=== PATIENT | male | born 1955 | race Caucasian/White ===

== ENCOUNTER 2025-01-27 10:33 | Day surgery (SDC) | payer OTHER ==
[2025-01-06 14:46] VITALS: BP 160/103
[~2025-01-27 10:33] MED LIST: Amlodipine Bes2.5 MG PO; HYDROCHLOROTHIA25 MG PO; JARDIANCE10 MG PO; LOSA50 PO
[2025-01-28] MEDS ORDERED: NEBI5 PO (12:42)
[2025-01-28] MEDS ORDERED: POTCHL20ER PO (12:43)
== END 2025-01-27 23:00 | disposition home or self-care (01) ==
LOC: ORSCMMR 10:33 → ORD 11:30 → ORSCMMR 23:00
DX: M17.11 Unilateral primary osteoarthritis, right knee (principal); Z53.9 Procedure and treatment not carried out, unspecified reason

== ENCOUNTER 2025-01-27 10:43 | Observation (INO) | payer OTHER ==
[~2025-01-27] VITALS: Ht 188 cm; Wt 108.9 kg
[2025-01-27] MEDS ORDERED: Ondansetron HCl 2 MG / ML 2ML Vial IV ONE (11:15)
[2025-01-27] MEDS ORDERED: NS 1,000 ML IV SCH ×2 (11:15→15:00)
[2025-01-27 11:29] LABS: BASOPHILS ABSOLUTE AUTO 0.06 K/mm3 (0.00-0.23); BASOPHILS PERCENT AUTO 1 % (0-2); EOSINOPHILS ABSOLUTE AUTO 0.05 K/mm3 (0.00-0.68); EOSINOPHILS PERCENT AUTO 1 % (0-6); Hematocrit 53.0 % (37.0-53.0); Hemoglobin 18.1 g/dL (13.5-17.5); IMMATURE GRAN ABSOLUTE AUTO 0.05 K/mm3 (0.00-0.10); IMMATURE GRAN PERCENT AUTO 1 % (0-1); LYMPHOCYTES ABSOLUTE AUTO 1.32 K/mm3 (0.84-5.20); LYMPHOCYTES PERCENT AUTO 13 % (21-46); MONOCYTES ABSOLUTE AUTO 1.41 K/mm3 (0.16-1.47); MONOCYTES PERCENT AUTO 14 % (4-13); Mean Corpuscular HGB Conc 34.2 g/dL (31.5-36.5); Mean Corpuscular Volume 85 fL (80-100); NEUTROPHILS ABSOLUTE AUTO 7.12 K/mm3 (1.96-9.15); NEUTROPHILS PERCENT AUTO 71 % (41-73); NRBC ABSOLUTE 0.00 K/mm3 (0.00-0.02); NRBC Auto 0.0 /100 WBC (0.0-0.2); Platelet Count 256 K/mm3 (150-400); RDW Coefficient Variation 13.5 % (11.7-14.2); RDW Standard Deviation 41.9 fL (35.1-46.3)
[2025-01-27] MEDS ORDERED: Mag Sulfate 1 GM/D5% 100ML 100 ML IV ONE (12:00)
[2025-01-27 12:14] LABS: Influenza A, PCR NEGATIVE (NEGATIVE); Influenza B, PCR NEGATIVE (NEGATIVE); Resp Syncytial Virus, PCR NEGATIVE (NEGATIVE); SARS-Cov-2 (COVID-19) PCR, MMC NEGATIVE (NEGATIVE)
[2025-01-27 12:23] LABS: Alanine Aminotransfer (ALT/SGP 37.0 U/L (12-78); Albumin, Blood 3.4 g/dL (3.4-5.0); Albumin/Globulin Ratio 0.8 (0.8-1.8); Anion Gap 15.0 mmol/L (3-11); Aspartate Aminotrans (AST/SGOT 31.0 U/L (12-37); Bilirubin, Total 1.7 mg/dL (0.1-1.0); Blood Urea Nitrogen 29.0 mg/dL (8-24); CO2, Blood 21.0 mmol/L (21-32); Calcium, Blood 8.8 mg/dL (8.5-10.1); Chloride, Blood 101.0 mmol/L (98-108); Creatinine, Blood 1.58 mg/dL (0.60-1.20); Globulin, Blood 4.1 g/dL (2.2-4.0); Glucose, Blood 203.0 mg/dL (70-99); Potassium, Blood 2.7 mmol/L (3.5-5.5); Sodium, Blood 134.0 mmol/L (136-145); Total Protein, Blood 7.5 g/dL (6.4-8.2)
[2025-01-27 12:35] LABS: pH Blood Venous 7.37 (7.34-7.37)
[2025-01-27] MEDS ORDERED: Ondansetron HCl 2 MG / ML 2ML Vial IV PRN (15:00)
[2025-01-27 17:29] LABS: Campylobacter Sp Detected (NOT DETECT)
[2025-01-27 17:30] LABS: E. Coli O157 Not Detected (NOT DETECT); Enteroaggregative E. coli-EAEC Not Detected (NOT DETECT); Enteropathogenic E. coli-EPEC Detected (NOT DETECT); Enterotoxigenic E. coli-ETEC Not Detected (NOT DETECT); Salmonella Sp Not Detected (NOT DETECT); Shiga Toxin-prod E. coli-STEC Not Detected (NOT DETECT); Shigella/Enteroin E. coli-EIEC Not Detected (NOT DETECT); Vibrio Sp Not Detected (NOT DETECT)
[2025-01-27 17:37] VITALS: BP 138/82
[2025-01-27 17:54] LABS: Anion Gap 6.0 mmol/L (3-11); Blood Urea Nitrogen 30.0 mg/dL (8-24); CO2, Blood 27.0 mmol/L (21-32); Calcium, Blood 8.5 mg/dL (8.5-10.1); Chloride, Blood 103.0 mmol/L (98-108); Creatinine, Blood 1.52 mg/dL (0.60-1.20); Glucose, Blood 151.0 mg/dL (70-99); Potassium, Blood 4.2 mmol/L (3.5-5.5); Sodium, Blood 132.0 mmol/L (136-145)
[2025-01-27 20:08] VITALS: BP 148/83
--- NOTE | 2025-01-27 20:24 | NUR ---
NEW TP-ORDER RECEIVED FROM THE ON-CALL HOSPITALIST: TYLENOL PO 500MG Q6 PRN. ENTERED TO [employer], SEE EMAR.
[2025-01-28 00:22] VITALS: BP 139/82
--- NOTE | 2025-01-28 02:47 | NUR ---
SHIFT SUMMARY CHARGE NURSE BENITA COMPLETED THE ADMISSION ASSESSMENT AT . PT IS A/O X4, INDEPENDENT W/I THE HOSPITAL ROOM. LR INFUSING ORDERED. TEMP. 99.1, NEW ORDER FOR TYLENOL PRN RECEIVED FROM THE ON-CALL HOSPITALIST. TELE: SR @96, DENIES CP/PRESSURE. PT REQUESTED IMMODIUM, C/O DIARRHEA> 5 DAYS. A PHONE CALL WAS PLACED AND PRN IMMODIUM WAS REQUESTED- NO ORDER RECEIVED OF YET, D/T PENDING STOOL LABS NEEDING TO BE REVIEWED. PT AGREEABLE TO THE PLAN. BED AT THE LOWEST POSITION, CALL LIGHT W/I REACH. PT IS ABLE TO MAKE HIS NEEDS KNOWN AND IS COOPERATIVE WITH CARE.
[2025-01-28 03:22] VITALS: BP 154/89
[2025-01-28 05:32] LABS: BASOPHILS ABSOLUTE AUTO 0.09 K/mm3 (0.00-0.23); BASOPHILS PERCENT AUTO 1 % (0-2); EOSINOPHILS ABSOLUTE AUTO 0.11 K/mm3 (0.00-0.68); EOSINOPHILS PERCENT AUTO 1 % (0-6); Hematocrit 49.3 % (37.0-53.0); Hemoglobin 16.1 g/dL (13.5-17.5); IMMATURE GRAN ABSOLUTE AUTO 0.04 K/mm3 (0.00-0.10); IMMATURE GRAN PERCENT AUTO 0 % (0-1); LYMPHOCYTES ABSOLUTE AUTO 1.34 K/mm3 (0.84-5.20); LYMPHOCYTES PERCENT AUTO 14 % (21-46); MONOCYTES ABSOLUTE AUTO 1.49 K/mm3 (0.16-1.47); MONOCYTES PERCENT AUTO 16 % (4-13); Mean Corpuscular HGB Conc 32.7 g/dL (31.5-36.5); Mean Corpuscular Volume 87 fL (80-100); NEUTROPHILS ABSOLUTE AUTO 6.54 K/mm3 (1.96-9.15); NEUTROPHILS PERCENT AUTO 68 % (41-73); NRBC ABSOLUTE 0.00 K/mm3 (0.00-0.02); NRBC Auto 0.0 /100 WBC (0.0-0.2); Platelet Count 235 K/mm3 (150-400); RDW Coefficient Variation 14.0 % (11.7-14.2); RDW Standard Deviation 44.6 fL (35.1-46.3)
[2025-01-28 05:56] LABS: Alanine Aminotransfer (ALT/SGP 28.0 U/L (12-78); Albumin, Blood 3.0 g/dL (3.4-5.0); Albumin/Globulin Ratio 0.8 (0.8-1.8); Anion Gap 10.0 mmol/L (3-11); Aspartate Aminotrans (AST/SGOT 19.0 U/L (12-37); Bilirubin, Total 1.2 mg/dL (0.1-1.0); Blood Urea Nitrogen 27.0 mg/dL (8-24); CO2, Blood 27.0 mmol/L (21-32); Calcium, Blood 8.2 mg/dL (8.5-10.1); Chloride, Blood 101.0 mmol/L (98-108); Creatinine, Blood 1.49 mg/dL (0.60-1.20); Globulin, Blood 3.7 g/dL (2.2-4.0); Glucose, Blood 139.0 mg/dL (70-99); Potassium, Blood 3.1 mmol/L (3.5-5.5); Sodium, Blood 135.0 mmol/L (136-145); Total Protein, Blood 6.7 g/dL (6.4-8.2)
[2025-01-28] MEDS ORDERED: Enoxaparin 40 MG/0.4 ML SYR SC SCH (09:00)
[2025-01-28 09:39] VITALS: BP 154/88
[2025-01-28] MEDS ORDERED: NEBI5 PO (12:42)
[2025-01-28] MEDS ORDERED: POTCHL20ER PO (12:43)
--- NOTE | 2025-01-28 13:43 | NUR ---
DISCHARGE PT DISCHARGED AND REFUSED WHEELCHAIR RIDE OUT OF FACILITY. PT EDUCATED ON NEW MEDS AND FOLLOWUP INSTRUCTIONS NEEDED. HARD SCRIPT FOR BLOOD WORK SENT WITH THE PATIENT. PT DENIED FURTHER NEED FOR INSTRUCTION PRIOR TO DC. PT SHOWERED TODAY. IV REMOVED & INTACT. NO ACUTE CHANGES PRIOR TO DC.
[2025-02-17] MEDS ORDERED: HYDCHL25 PO (14:28)
[2025-02-17] MEDS ORDERED: LOSA50 PO (14:30)
[2025-02-17] MEDS ORDERED: MUPIROCIN111 TOP (14:32)
[2025-02-17] MEDS ORDERED: OXYC5 PO (14:32)
[2025-02-17] MEDS ORDERED: SULTRIDS PO (14:33)
[2025-02-18] MEDS ORDERED: POTA10T PO (09:32)
== END 2025-01-28 13:19 | disposition home or self-care (01) ==
LOC: ER 10:43 → ERHOLD 10:44 → MEDS 17:20
PROVIDERS: Emergency Medicine; ADMIT Internal Medicine
DX: E87.6 Hypokalemia (principal); R55 Syncope and collapse; N17.9 Acute kidney failure, unspecified; K52.9 Noninfective gastroenteritis and colitis, unspecified; E86.0 Dehydration; I10 Essential (primary) hypertension; M17.9 Osteoarthritis of knee, unspecified; K21.9 Gastro-esophageal reflux disease without esophagitis; Z79.84 Long term (current) use of oral hypoglycemic drugs; Z79.899 Other long term (current) drug therapy; Z88.6 Allergy status to analgesic agent; Z88.8 Allergy status to other drugs, medicaments and biological substances
CPT/HCPCS: 36415; 71045; 80048; 80053; 82803; 83690; 83735; 85025; 87507; 87637; 93005; 93010; 96361; 96365; 96366; 96367; 99285-25; A9270; G0378; J2405; J3475; J3480; J7030; J7050; J7120

== ENCOUNTER 2025-01-31 16:49 | Emergency (ER) | payer OTHER ==
[~2025-01-31] VITALS: Ht 188 cm; Wt 110.2 kg
[~2025-01-31 16:49] MED LIST changes: +NEBI5 PO; +POTCHL20ER PO
[2025-01-31 17:45] LABS: BASOPHILS ABSOLUTE AUTO 0.15 K/mm3 (0.00-0.23); BASOPHILS PERCENT AUTO 2 % (0-2); EOSINOPHILS ABSOLUTE AUTO 0.14 K/mm3 (0.00-0.68); EOSINOPHILS PERCENT AUTO 1 % (0-6); Hematocrit 48.1 % (37.0-53.0); Hemoglobin 16.2 g/dL (13.5-17.5); IMMATURE GRAN ABSOLUTE AUTO 0.36 K/mm3 (0.00-0.10); IMMATURE GRAN PERCENT AUTO 4 % (0-1); LYMPHOCYTES ABSOLUTE AUTO 2.51 K/mm3 (0.84-5.20); LYMPHOCYTES PERCENT AUTO 25 % (21-46); MONOCYTES ABSOLUTE AUTO 0.87 K/mm3 (0.16-1.47); MONOCYTES PERCENT AUTO 9 % (4-13); Mean Corpuscular HGB Conc 33.7 g/dL (31.5-36.5); Mean Corpuscular Volume 85 fL (80-100); NEUTROPHILS ABSOLUTE AUTO 5.98 K/mm3 (1.96-9.15); NEUTROPHILS PERCENT AUTO 60 % (41-73); NRBC ABSOLUTE 0.00 K/mm3 (0.00-0.02); NRBC Auto 0.0 /100 WBC (0.0-0.2); Platelet Count 308 K/mm3 (150-400); RDW Coefficient Variation 13.2 % (11.7-14.2); RDW Standard Deviation 41.0 fL (35.1-46.3)
[2025-01-31 18:20] LABS: Magnesium, Blood 1.8 mg/dL (1.6-2.4); Phosphorus, Blood 1.8 mg/dL (2.5-4.9)
[2025-01-31 18:25] LABS: Alanine Aminotransfer (ALT/SGP 47.0 U/L (12-78); Albumin, Blood 3.8 g/dL (3.4-5.0); Albumin/Globulin Ratio 1.0 (0.8-1.8); Anion Gap 10.0 mmol/L (3-11); Aspartate Aminotrans (AST/SGOT 46.0 U/L (12-37); Bilirubin, Total 0.9 mg/dL (0.1-1.0); Blood Urea Nitrogen 17.0 mg/dL (8-24); CO2, Blood 24.0 mmol/L (21-32); Calcium, Blood 9.3 mg/dL (8.5-10.1); Chloride, Blood 103.0 mmol/L (98-108); Creatinine, Blood 1.39 mg/dL (0.60-1.20); Globulin, Blood 3.7 g/dL (2.2-4.0); Glucose, Blood 131.0 mg/dL (70-99); Potassium, Blood 3.4 mmol/L (3.5-5.5); Sodium, Blood 134.0 mmol/L (136-145); Total Protein, Blood 7.5 g/dL (6.4-8.2)
[2025-01-31 19:33] LABS: Source, Urine Clean Catch
[2025-01-31 19:36] LABS: Bilirubin, Urine Neg (Neg); Color, Urine Yellow (P-Yellow); Glucose Qualitative, Urine Neg (Neg); Ketones, Urine 1+ (Neg); Leukocyte Esterase, Urine Neg (Neg); Protein, Urine 2+ (Neg); Specific Gravity, Urine 1.015 (1.003-1.022); Urobilinogen, Urine NORM (Normal)
[2025-01-31] MEDS ORDERED: ACET500 PO (19:56)
[2025-01-31] MEDS ORDERED: K-Phos Origina500 MG PO (19:56)
[2025-01-31 20:07] LABS: White Blood Cells, Urine 0-2 /hpf (0-5)
[2025-01-31 20:18] VITALS: BP 170/90
== END 2025-01-31 20:18 | disposition home or self-care (01) ==
LOC: ER 16:49
PROVIDERS: Emergency Medicine; Physician Assistant
DX: R50.9 Fever, unspecified (principal); I10 Essential (primary) hypertension; M19.90 Unspecified osteoarthritis, unspecified site; K21.9 Gastro-esophageal reflux disease without esophagitis; Z79.899 Other long term (current) drug therapy; Z88.6 Allergy status to analgesic agent; Z88.8 Allergy status to other drugs, medicaments and biological substances
CPT/HCPCS: 36415; 71045; 74177; 80053; 81001; 83605; 83735; 84100; 85025; 87040; 87086; 93005; 93010; 99284-25; A9270; Q9967

== ENCOUNTER 2025-02-15 14:01 | Emergency (ER) | payer OTHER ==
[~2025-02-15] VITALS: Ht 175.3 cm; Wt 90.7 kg
[~2025-02-15 14:01] MED LIST changes: +ACET500 PO; +K-Phos Origina500 MG PO
[2025-02-15 14:55] LABS: BASOPHILS ABSOLUTE AUTO 0.04 K/mm3 (0.00-0.23); BASOPHILS PERCENT AUTO 1 % (0-2); EOSINOPHILS ABSOLUTE AUTO 0.11 K/mm3 (0.00-0.68); EOSINOPHILS PERCENT AUTO 2 % (0-6); Hematocrit 46.4 % (37.0-53.0); Hemoglobin 15.3 g/dL (13.5-17.5); IMMATURE GRAN ABSOLUTE AUTO 0.02 K/mm3 (0.00-0.10); IMMATURE GRAN PERCENT AUTO 0 % (0-1); LYMPHOCYTES ABSOLUTE AUTO 1.20 K/mm3 (0.84-5.20); LYMPHOCYTES PERCENT AUTO 18 % (21-46); MONOCYTES ABSOLUTE AUTO 0.45 K/mm3 (0.16-1.47); MONOCYTES PERCENT AUTO 7 % (4-13); Mean Corpuscular HGB Conc 33.0 g/dL (31.5-36.5); Mean Corpuscular Volume 88 fL (80-100); NEUTROPHILS ABSOLUTE AUTO 4.90 K/mm3 (1.96-9.15); NEUTROPHILS PERCENT AUTO 73 % (41-73); NRBC ABSOLUTE 0.00 K/mm3 (0.00-0.02); NRBC Auto 0.0 /100 WBC (0.0-0.2); Platelet Count 277 K/mm3 (150-400); RDW Coefficient Variation 14.0 % (11.7-14.2); RDW Standard Deviation 44.9 fL (35.1-46.3)
[2025-02-15 15:12] LABS: Alanine Aminotransfer (ALT/SGP 27.0 U/L (12-78); Albumin, Blood 4.2 g/dL (3.4-5.0); Albumin/Globulin Ratio 1.4 (0.8-1.8); Anion Gap 11.0 mmol/L (3-11); Aspartate Aminotrans (AST/SGOT 18.0 U/L (12-37); Bilirubin, Total 1.0 mg/dL (0.1-1.0); Blood Urea Nitrogen 14.0 mg/dL (8-24); CO2, Blood 24.0 mmol/L (21-32); Calcium, Blood 9.2 mg/dL (8.5-10.1); Chloride, Blood 107.0 mmol/L (98-108); Creatinine, Blood 1.05 mg/dL (0.60-1.20); Globulin, Blood 3.1 g/dL (2.2-4.0); Glucose, Blood 113.0 mg/dL (70-99); Potassium, Blood 3.4 mmol/L (3.5-5.5); Sodium, Blood 139.0 mmol/L (136-145); Total Protein, Blood 7.3 g/dL (6.4-8.2)
[2025-02-15] MEDS ORDERED: METO50ER PO (15:21)
[2025-02-15 15:24] VITALS: BP 179/101
[2025-02-15] MEDS ORDERED: LOSARTAN-HCTZ1 EACH PO (15:53)
[2025-02-15] MEDS ORDERED: HYDCHL12.5 PO (15:53)
[2025-02-15] MEDS ORDERED: Losartan/HCTZ 50-12.5 TAB PO ONE (16:00)
[2025-02-17] MEDS ORDERED: HYDCHL25 PO (14:28)
[2025-02-17] MEDS ORDERED: OXYC5 PO (14:32)
[2025-02-17] MEDS ORDERED: MUPIROCIN111 TOP (14:32)
[2025-02-17] MEDS ORDERED: SULTRIDS PO (14:33)
[2025-02-18] MEDS ORDERED: POTA10T PO (09:32)
== END 2025-02-15 16:14 | disposition home or self-care (01) ==
LOC: ER 14:01
PROVIDERS: Emergency Medicine
DX: I10 Essential (primary) hypertension (principal); E87.6 Hypokalemia; K21.9 Gastro-esophageal reflux disease without esophagitis; M19.90 Unspecified osteoarthritis, unspecified site; Z88.8 Allergy status to other drugs, medicaments and biological substances; Z79.899 Other long term (current) drug therapy
CPT/HCPCS: 80053; 85025; 99283; A9270

== ENCOUNTER 2025-03-07 13:44 | Emergency (ER) | payer OTHER ==
[~2025-03-07] VITALS: Ht 188 cm; Wt 64.9 kg
[~2025-03-07 13:44] MED LIST changes: +HYDCHL12.5 PO; +HYDCHL25 PO; +LOSARTAN-HCTZ1 EACH PO; +METO50ER PO; +MUPIROCIN111 TOP; +OXYC5 PO; +POTA10T PO; +SULTRIDS PO
[2025-03-07 15:29] LABS: BASOPHILS ABSOLUTE AUTO 0.06 K/mm3 (0.00-0.23); BASOPHILS PERCENT AUTO 1 % (0-2); EOSINOPHILS ABSOLUTE AUTO 0.11 K/mm3 (0.00-0.68); EOSINOPHILS PERCENT AUTO 1 % (0-6); Hematocrit 49.2 % (37.0-53.0); Hemoglobin 16.7 g/dL (13.5-17.5); IMMATURE GRAN ABSOLUTE AUTO 0.03 K/mm3 (0.00-0.10); IMMATURE GRAN PERCENT AUTO 0 % (0-1); LYMPHOCYTES ABSOLUTE AUTO 1.69 K/mm3 (0.84-5.20); LYMPHOCYTES PERCENT AUTO 20 % (21-46); MONOCYTES ABSOLUTE AUTO 0.62 K/mm3 (0.16-1.47); MONOCYTES PERCENT AUTO 8 % (4-13); Mean Corpuscular HGB Conc 33.9 g/dL (31.5-36.5); Mean Corpuscular Volume 86 fL (80-100); NEUTROPHILS ABSOLUTE AUTO 5.81 K/mm3 (1.96-9.15); NEUTROPHILS PERCENT AUTO 70 % (41-73); NRBC ABSOLUTE 0.00 K/mm3 (0.00-0.02); NRBC Auto 0.0 /100 WBC (0.0-0.2); Platelet Count 200 K/mm3 (150-400); RDW Coefficient Variation 13.7 % (11.7-14.2); RDW Standard Deviation 43.3 fL (35.1-46.3)
[2025-03-07] MEDS ORDERED: NEBIVOLOL HCL2.5 MG PO (15:56)
[2025-03-07 16:10] LABS: Anion Gap 10.0 mmol/L (3-11); Blood Urea Nitrogen 23.0 mg/dL (8-24); CO2, Blood 27.0 mmol/L (21-32); Calcium, Blood 9.4 mg/dL (8.5-10.1); Chloride, Blood 102.0 mmol/L (98-108); Creatinine, Blood 1.14 mg/dL (0.60-1.20); Glucose, Blood 112.0 mg/dL (70-99); Potassium, Blood 3.1 mmol/L (3.5-5.5); Sodium, Blood 136.0 mmol/L (136-145)
[2025-03-07 17:30] VITALS: BP 137/107
[2025-03-07] MEDS ORDERED: K-TAB ER20 ME1 PO (17:43)
[2025-03-07] MEDS ORDERED: Potassium Chloride 10 Meq Tablet SA PO ONE (17:45)
== END 2025-03-07 18:00 | disposition home or self-care (01) ==
LOC: ER 13:44
PROVIDERS: Student in an Organized Health Care Education/Training Program
DX: E87.6 Hypokalemia (principal); I10 Essential (primary) hypertension; K21.9 Gastro-esophageal reflux disease without esophagitis; M19.90 Unspecified osteoarthritis, unspecified site; Z88.8 Allergy status to other drugs, medicaments and biological substances; Z79.899 Other long term (current) drug therapy
CPT/HCPCS: 80048; 84484; 85025; 93005; 93010; 99285-25

== ENCOUNTER 2025-05-05 08:17 | Day surgery (SDC) | payer OTHER ==
[2025-05-05] VITALS (13 sets, daily range): BP systolic 102–181; BP diastolic 58–107
[~2025-05-05] VITALS: Ht 182.9 cm; Wt 110.5 kg
[~2025-05-05 08:17] MED LIST changes: +AMLO5 PO; -Amlodipine Bes2.5 MG PO; +CeFAZolin Sodium 2,000 MG in NS 100 ML IV SCH; +Chlorhexidine Mouth Care 15 ML UDC MT SCH; +K-TAB ER20 ME1 PO; +LOSARTAN-HCTZ1 EAC6 PO; +NEBIVOLOL HCL2.5 MG PO; +Ropivacaine 0.5% HCl/Pf 123.125 MG,EPINEPHrine HCL 0.25 MG,Ketorolac Tromethamine 15 MG... INFIL SCH; +Tranexamic Acid 100 ML IV SCH
[2025-05-05] MEDS ORDERED: Ondansetron HCl 2 MG / ML 2ML Vial IV PRN ×3 (08:45→09:25)
[2025-05-05] MEDS ORDERED: Metoclopramide HCl 5MG / ML 2ML Vial IV PRN ×3 (08:45→09:30)
[2025-05-05] MEDS ORDERED: Magnesium Hydroxide Conc 10 ML UDC PO PRN ×2 (08:45→09:30)
[2025-05-05] MEDS ORDERED: HYDROmorphone HCl/Pf 1MG SYR IV PRN ×2 (08:50→09:30)
[2025-05-05] MEDS ORDERED: FentaNYL Citrate 50 MCG/ML 2 ML Injection IV PRN ×3 (08:55→09:00)
[2025-05-05] MEDS ORDERED: Midazolam HCl 1MG / ML 2ML Vial IV PRN (08:55)
[2025-05-05] MEDS ORDERED: FLU VACC TS2025(65UP)/MF59C/PF 45 MCG/0.5 ML SYRINGE IM SCH (09:00)
[2025-05-05] MEDS ORDERED: CeFAZolin Sodium 2,000 MG VIAL ONE (09:07)
--- NOTE | 2025-05-05 09:15 | NUR ---
KNEE HIGH RONAL HOSE WITH CALF PAS APPLIED TO LLE. PATIENT STATES HE LEFT DENTURES AT HOME. GLASSES TO BE BROUGHT TO PACU FOR SAFE KEEPING DURING SURGERY. MYRANDAN X2 TO SANKETES PER DR CAVANAUGH ORDER. SURGICAL CHECKLIST STATES X3, BUT X2 PER ORDER COMPLETED.
--- NOTE | 2025-05-05 09:24 | NUR ---
UP TO BR TO VOID.
[2025-05-05] MEDS ORDERED: FLU VACC TS2025-26(6MOS UP)/PF 45 MCG/0.5 ML SYRINGE IM ONE (09:30)
[2025-05-05] MEDS ORDERED: Insulin Regular 100 UNIT/ML 10ML Vial SC SCH (11:30)
[2025-05-05] MEDS ORDERED: Ketorolac Tromethamine 15mg Vial IV SCH (12:00)
--- NOTE | 2025-05-05 13:02 | NUR ---
POST OP/ARRIVAL TO UNIT PT ARRIVED TO RM 218 APPROX 1230 VIA [place], SLIDE TRANSFER TO BED. PT DENIES ANY PAIN TO R KNEE. STATES HE FEELS NUMB & HAS NO SENSATION YET. PT RECIEVED SPINAL. ABLE TO MOVE FOOT, AQUACEL INTACT TO R KNEE. AOX4. AWAKENS TO QUETIONS. VSS. SPO2 >90% ON 2L O2, DOESNT WEAR O2 @BASELINE. CBG @130. ORIENTED TO & CALL LIGHT. @BEDSIDE.
[2025-05-05] MEDS ORDERED: ASPI81CH PO (14:49)
[2025-05-05] MEDS ORDERED: ACET500 PO (14:49)
[2025-05-05] MEDS ORDERED: DOCU100 PO (14:50)
[2025-05-05] MEDS ORDERED: OXYC5 PO (14:51)
[2025-05-05] MEDS ORDERED: CeFAZolin Sodium 2,000 MG in NS 100 ML IV SCH (18:00)
[2025-05-06] MEDS ORDERED: Potassium Chloride 10 Meq Tablet SA PO SCH (09:00)
== END 2025-05-05 17:42 | disposition home or self-care (01) ==
LOC: ORSCMMR 08:17 → ORD 09:30 → ORSCMMR 09:30 → SURS 12:33 → ORSCMMR 17:42 → ORD 06-16 08:30
PROVIDERS: Orthopaedic Surgery
PROC: 0SRC0JA Replacement of Right Knee Joint with Synthetic Substitute, Uncemented, Open Approach (ICD-10-PCS; principal; 2025-05-05 09:30)
DX: M17.11 Unilateral primary osteoarthritis, right knee (principal); I10 Essential (primary) hypertension; E11.9 Type 2 diabetes mellitus without complications; E66.9 Obesity, unspecified; Z68.33 Body mass index [BMI] 33.0-33.9, adult; Z79.84 Long term (current) use of oral hypoglycemic drugs; Z79.899 Other long term (current) drug therapy
CPT/HCPCS: 27447; 0055T; 73560-RT; 82947; A9270; C1713; C1776; J0166; J0690; J0735; J1885; J2250; J2704; J2795; J7120